=== PATIENT | female | born 1955 | race African-American/Black ===

== ENCOUNTER 2024-10-14 16:07 | Emergency (ER) | payer OTHER ==
[~2024-10-14] VITALS: Ht 162.6 cm; Wt 74.0 kg
--- NOTE | 2024-10-14 16:38 | ED.PDOC ---
Back pain HPI HPI Comments 69y F who presents to the ED for chief complaint of L sided groin pain. - pt states she has been having L sided proximal medial thigh pain radiating to the L medial knee for the past 1 week spontaneously. - pt states she has been having associated numbness and tingling occasionally in the big toe of the left foot. - pt denies any associated fall or injury - pt has associated increased pain with ambulation and relief of pain with rest or sitting down - pt otherwise denies shortness of breath, cough, chest pain, dizziness, nausea, vomiting, fever, or chills. Patient denies back pain. Denies cauda equina like symptoms. Past medical history: HTN, HLD past surgical history: fallopian tube surgery Medications: unknown Allergies: nkda Social history: denies ETOH, denies tobacco use, denies drug use HPI: Poor Historian. REVIEW OF SYSTEMS: CONSTITUTIONAL: Denies acute: fever, diaphoresis, chills, generalized weakness. HEAD: Denies acute: headache, photophobia Eyes: Denies acute: Double vision, vision loss, eye pain, eye discharge. EARS: Denies acute: tinnitus, hearing loss, ear discharge, ear pain, THROAT: Denies acute: sore throat, swelling, difficulty swallowing , pain with swa llowing, change in voice. NECK: Denies acute: neck pain, neck swelling, stiff neck. HEART: Denies acute : chest pain, palpitations, LUNGS: Denies acute: SOB, wheezing, cough, hemoptysis ABDOMEN: Denies acute: abdominal pain, Nausea, Vomiting, diarrhea, melena , hematemesis, hematochezia SKIN: Denies acute: rash, redness, lesions, itchiness. EXTREMITIES: Denies acute: calf pain, numbness, tingling, weakness, Denies acute: Low back pain. Neuro: Denies acute: focal neurological deficit, motor or sensory focal neurological deficit, tremors, seizure like activity, confusion, dizziness, change in mental status, loss of bowel or bladder function, cauda equina like symptoms. : Denies acute: dysuria, hematuria, flank pain, increase in urinary frequency. PSYCH: Denies acute: hallucination, suicidal ideation, homicidal ideation. FEMALE: Denies acute: abnormal vaginal bleeding, foul odor, unusual discharge. PHYSICAL EXAM: General: --no------acute distress, awake and alert. Head: normocephalic, atraumatic. Neck: supple, trachea is midline, no swelling. Throat: Normal phonation. Eyes:, no erythema, no purulent discharge, no proptosis, no icterus. Heart: regular rate, regular rhythm, no significant murmur appreciated. Lungs: no apparent respiratory distress, Able to speak in full sentences. No wheezing, no rhonchi, no crackles. No stridors Clear to auscultation bilaterally. Abdomen: non tender to palpation, non distended, soft, no guarding, no rebound, + bowel sounds. Neuro: Awake, Alert, oriented to name, self, situation, follows commands GCS=15. Speech is normal. Skin: no petechia, no purpura, no cyanosis, non-pale, not jaundice. Lower extremities: --no - Pitting edema no deformity, no focal swelling, no calf TTP. Makes eye contact. moves all four extremities. Evaluation of the left lower extremity: No focal tenderness to palpation, patient is neurovascularly intact in the affected extremity. No deformity or swelling. Pedal pulses palpable. Motor and sensory are present. Face: no apparent facial droop. Ambulating in the ED independently. , Pedal pulses are palpable. ED COURSE: Chief Complaint: Lower Extremity Time Seen by MD: 16:45 Reviewed Notes: Nurses Notes, Allergies Allergies: Coded Allergies: NO KNOWN ALLERGIES (Unverified , 10/14/24) Information Source: Patient Mode of Arrival: Ambulatory Brought in by: self Was a procedure done? Was a procedure done?: No Back Pain Differential Dx Differential Diagnosis: Musculoskeletal Pain, Strain, Other (Radiculopathy, cauda equina, back pain, referred pain, spinal stenosis, muscle strain, DVT, compartment syndrome, cellulitis,) X-Ray, Labs, Meds, VS Vital Signs Date Time Temp Pulse Resp B/P (MAP) Pulse Ox O2 Delivery O2 Flow Rate FiO2 10/14/24 19:47 63 18 98 Room Air 10/14/24 19:47 98.4 63 18 145/83 (103) 98 98.4 10/14/24 16:18 98.8 83 18 128/75 (92) 98 98.8 Lab Test 10/14/24 16:34 10/14/24 16:24 Range/Units White Blood Count 5.2 4.4-10.8 10^3/uL Red Blood Count 4.08 4.0-5.20 10^6/uL Hemoglobin 12.5 12.2-16.2 g/dL Hematocrit 36.3 36.0-46.0 % Mean Corpuscular Volume 88.9 80.0-100.0 fL Mean Corpuscular Hemoglobin 30.7 28.0-32.0 pg Mean Corpuscular Hemoglobin Concent 34.5 32.0-36.0 g/dL Red Cell Distribution Width 14.7 H 11.8-14.3 % Platelet Count 288 140-450 10^3/uL Mean Platelet Volume 7.9 6.9-10.8 fL Neutrophils (%) (Auto) 41.2 37.0-80.0 % Lymphocytes (%) (Auto) 46.6 10.0-50.0 % Monocytes (%) (Auto) 9.5 0.0-12.0 % Eosinophils (%) (Auto) 1.6 0.0-7.0 % Basophils (%) (Auto) 1.1 0.0-2.0 % Neutrophils # (Auto) 2.1 1.6-8.6 10 ^3/uL Lymphocytes # (Auto) 2.4 0.4-5.4 10 ^3/uL Monocytes # (Auto) 0.5 0-1.3 10 ^3/uL Eosinophils # (Auto) 0.1 0-0.8 10 ^3/uL Basophils # (Auto) 0.1 0-0.2 10 ^3/uL Nucleated Red Blood Cells 0.2 % Sodium Level 140 136-145 mmol/L Potassium Level 3.6 3.5-5.1 mmol/L Chloride Level 103 98-107 mmol/L Carbon Dioxide Level 27 20-31 mmol/L Anion Gap 10 5-15 Blood Urea Nitrogen 14 9-23 mg/dL Creatinine 1.11 H 0.550-1.02 mg/dL Glomerular Filtration Rate Calc 54 >90 mL/min BUN/Creatinine Ratio 12.6 10.0-20.0 Serum Glucose 77 74-106 mg/dL Calcium Level 10.4 8.7-10.4 mg/dL Total Bilirubin 0.3 0.2-1.0 mg/dL Aspartate Amino Transferase (AST) 15 13-40 U/L Alanine Aminotransferase (ALT) 18 7-40 U/L Alkaline Phosphatase 51 46-116 U/L C-Reactive Protein High Sensitivity 0.32 <1.0 mg/dL Total Protein 7.7 5.7-8.2 g/dL Albumin 5.0 H 3.2-4.8 g/dL Urine Color Light-yellow Yellow Urine Clarity Clear Clear Urine pH 7.0 5.0-9.0 Urine Specific [place] 1.013 1.001-1.035 Urine Protein Negative Negative Urine Ketones Negative Negative Urine Blood Negative Negative /uL Urine Nitrite Negative Negative Urine Bilirubin Negative Negative Urine Urobilinogen Normal Negative mg/dL Urine Leukocyte Esterase 2+ Negative /uL Urine RBC 2 0 - 4 /hpf Urine Microscopic WBC 4 0-5 /HPF Urine Squamous Epithelial Cells Few <5 /hpf Urine Bacteria Few H None Seen /hpf Urine Hyaline Casts Mod 0 - 2 /lpf Urine Glucose Normal Normal mg/dL Current Medications Medications (Trade) Dose Ordered Sig/Renetta Route Start Time Stop Time Status Last Admin Ceftriaxone Sodium 50 ml @ 100 mls/hr ONCE ONCE IV 10/14/24 19:33 10/14/24 20:02 DC 10/14/24 19:47 Ketorolac Tromethamine (Toradol Injection) 15 mg ONCE ONCE IV 10/14/24 19:33 10/14/24 19:34 DC 10/14/24 19:47 Ondansetron HCl (Zofran) 4 mg ONCE ONCE IV 10/14/24 20:00 10/14/24 20:01 DC 10/14/24 19:57 [place] [address] Ph: [phone] DIAGNOSTIC IMAGING Diagnostic Imaging Report : [id number] Signed PATIENT: YOUNG REESE ACCT: [id number] UNIT: [id number] : 1955 LOC: ER ROOM / BED: / AGE / SEX: 69 / F ADM STATUS: REG ER SERVICE 1622 ORDERING PHYSICIAN: KIMBER ARREOLA DO PROCEDURE(s): LLDVT - LT Lower DVT REASON: medial thigh muscle pain ORDER NUMBER(s): [id number], ACCESSION NUMBER(s): [id number] LEFT lower extremity venous duplex Clinical History: medial thigh muscle pain Comparison: None Technique: Duplex Doppler evaluation of the deep venous systems of LEFT lower extremities from the common femoral veins to the popliteal veins including color Doppler and spectral/pulsed waveform analysis was performed. Findings: LEFT SIDE: The common femoral vein demonstrates appropriate compressibility and waveform variability. There is compressibility/patency of the great saphenous vein at the proximal thigh. The femoral vein demonstrates appropriate compressibility and waveform jacqueline iability. The deep femoral vein demonstrates appropriate compressibility and waveform variability. The popliteal vein demonstrates appropriate compressibility and waveform variability. There is normal compressibility at the tibioperoneal trunk. Impression: 1. No left femoropopliteal venous thrombosis. ATED BY: DANY PERDOMO Jr., DO DICTATED DATE/TIME: 10/14/241700 SIGNED BY: DANY PERDOMO Jr., SIGNED DATE/TIME: 10/14/241700 CC: Time of 1ST Reevaluation: 20:29 Reevaluation 1ST: Resolved Patient Education/Counseling: Diagnosis, Treatment Family Education/Counseling: No Family Present Comments Patient presented with the above HPI.---left medial thigh pain---workup was initiated. patient was found with the above mentioned diagnosis. the following medications were ordered: please refer to order lists of meds and tests obtained by myself Dr. Arreola. Patient ED course and VS have been stabilized. Patient has been reassessed in the ED and remained in a stable condition. Pertinent incidental findings were discussed with the patient and/or family. Patient/family voices understanding and is agreeable with plan. Patient has been observed in the ED adequate length of time to insure improvement/stability. Escalation of care considered: Consideration of escalation to observation or admission Patient denies any dysuria or increased urinary frequency Patient was DISCHARGED home in a stable condition. All the reports of any imaging studies that were ordered by myself were reviewed by myself. Departure 1 Departure Time of Disposition: 20:28 Impression: Primary Impression: Left leg pain Additional Impression: Musculoskeletal pain of left lower extremity Disposition: 01 HOME / SELF CARE / HOMELESS Condition: Stable Additional Instructions: Additional discharge instructions: You MUST follow-up with your primary care/family doctor in 1 to 2 days. If you are unable to see your primary care/family doctor, please return to our emergency room for re-assessment and re-evaluation in 1 to 2 days. Return to the emergency room here in our facility or to the nearest ER [facility] if your symptoms change or worsen. CONSULTATIONS: you MUST Follow-up for consultation as soon as possible with: orthopedic doctor in 1-2 days. Please call for appointment. You MUST call the consultants office yourself to make an appointment. You may need to arrange that through your insurance and/or your primary/family doctor. If you are unable to see the fitness sales consultant in 1 to 2 days, you must return to our emergency room (or any other ER of your choice) for re-assessment and re- evaluation. Adequate fluid hydration. Rest. Use [id number] Tylenol ibuprofen with food as instructed for pain control. Below is a copy of your radiological report for follow up: [place] [address] Ph: [phone] DIAGNOSTIC IMAGING Diagnostic Imaging Report : [id number] Signed PATIENT: YOUNG REESE ACCT: [id number] UNIT: [id number] : 1955 LOC: ER ROOM / BED: / AGE / SEX: 69 / F ADM STATUS: REG ER SERVICE 1622 ORDERING PHYSICIAN: KIMBER ARREOLA DO PROCEDURE(s): LLDVT - LT Lower DVT REASON: medial thigh muscle pain ORDER NUMBER(s): [id number], ACCESSION NUMBER(s): [id number] LEFT lower extremity venous duplex Clinical History: medial thigh muscle pain Comparison: None Technique: Duplex Doppler evaluation of the deep venous systems of LEFT lower extremities from the common femoral veins to the popliteal veins including color Doppler and spectral/pulsed waveform analysis was performed. Findings: LEFT SIDE: The common femoral vein demonstrates appropriate compressibility and waveform variability. There is compressibility/patency of the great saphenous vein at the proximal thigh. The femoral vein demonstrates appropriate compressibility and waveform variability. The deep femoral vein demonstrates appropriate compressibility and waveform variability. The popliteal vein demonstrates appropriate compressibility and waveform variability. There is normal compressibility at the tibioperoneal trunk. Impression: 1. No left femoropopliteal venous thrombosis. ATED BY: DANY PERDOMO Jr., DO DICTATED DATE/TIME: 10/14/241700 SIGNED BY: DANY PERDOMO Jr., DO SIGNED DATE/TIME: 10/14/241700 CC: e-Prescriptions Nitrofurantoin Monohydrate Mac (Macrobid) 100 Mg Cap 100 MG PO BID for 7 Days, #14 CAP Prov: KIMBER ARREOLA DO 10/14/24 Discharged With: Self Critical Care Note Critical Care Time?: No I personally scribed for KIMBER ARREOLA DO ([email or web address]) on 10/14/24 at 16:38. Electronically submitted by Araceli Blackman (CRISTINA). I personally scribed for KIMBER ARREOLA DO ([email or web address]) on 10/14/24 at 16:46. Electronically submitted by Araceli Blackman (CRISTINA). I personally scribed for KIMBER ARREOLA DO ([email or web address]) on 10/14/24 at 17:22. Electronically submitted by Araceli Blackman (CRISTINA). KIMBER ARREOLA DO Oct 14, 2024 16:38
--- NOTE | 2024-10-14 17:03 | DVH ---
LEFT lower extremity venous duplex Clinical History: medial thigh muscle pain Comparison: None Technique: Duplex Doppler evaluation of the deep venous systems of LEFT lower extremities from the common femora l veins to the popliteal veins including color Doppler and spectral/pulsed waveform analysis was perf ormed. Findings: LEFT SIDE: The common femoral vein demonstrates appropriate compressibility and waveform variability. There is compressibility/patency of the great saphenous vein at the proximal thigh. The femoral vein demonstrates appropriate compressibility and waveform variability. The deep femoral vein demonstrates appropriate compressibility and waveform variability. The popliteal vein demonstrates appropriate compressibility and waveform variability. There is normal compressibility at the tibioperoneal trunk. Impression: 1. No left femoropopliteal venous thrombosis.
[2024-10-14 17:09] LABS: Basophils # (auto) 0.1 10 ^3/uL (0-0.2); Basophils % (auto) 1.1 % (0.0-2.0); Eosinophils # (auto) 0.1 10 ^3/uL (0-0.8); Eosinophils % (auto) 1.6 % (0.0-7.0); Hematocrit 36.3 % (36.0-46.0); Hemoglobin 12.5 g/dL (12.2-16.2); Lymphocytes # (auto) 2.4 10 ^3/uL (0.4-5.4); Lymphocytes % (auto) 46.6 % (10.0-50.0); Mean Corpuscular Hemoglobin 30.7 pg (28.0-32.0); Mean Corpuscular Hgb Conc. 34.5 g/dL (32.0-36.0); Mean Corpuscular Volume 88.9 fL (80.0-100.0); Monocytes # (auto) 0.5 10 ^3/uL (0-1.3); Monocytes % (auto) 9.5 % (0.0-12.0); Neutrophils # (auto) 2.1 10 ^3/uL (1.6-8.6); Neutrophils % (auto) 41.2 % (37.0-80.0); Nucleated Red Blood Cells % 0.2 %; Platelet Count (auto) 288 10^3/uL (140-450); Red Blood Cells 4.08 10^6/uL (4.0-5.20); Red Cell Distribution Width 14.7 % (11.8-14.3); White Blood Cell 5.2 10^3/uL (4.4-10.8)
[2024-10-14 17:09] LABS: Urine Bacteria FEW /hpf (None Seen); Urine Blood Negative /uL (Negative); Urine Clarity Clear (Clear); Urine Color Light-Yellow (Yellow); Urine Hyaline Cast MOD /lpf (0 - 2); Urine Protein, UAD Negative (Negative); Urine Specific Gravity 1.013 (1.001-1.035); Urine Squamous Epithelial Cell FEW /hpf (<5); Urine Urobilinogen Normal (Negative); Urine WBC 4 /HPF (0-5)
[2024-10-14 17:21] LABS: Alanine Aminotransferase 18 U/L (7-40); Alkaline Phosphatase 51 U/L (46-116); Anion Gap 10 (5-15); Aspartate Aminotransferase 15 U/L (13-40); BUN/Creatinine Ratio 12.6 (10.0-20.0); Bilirubin, Total 0.3 mg/dL (0.2-1.0); Blood Urea Nitrogen 14 mg/dL (9-23); CRP High Sensitivity 0.32 mg/dL (<1.0); Carbon Dioxide 27 mmol/L (20-31); Chloride 103 mmol/L (98-107); Glucose 77 mg/dL (74-106); Potassium 3.6 mmol/L (3.5-5.1); Sodium 140 mmol/L (136-145); Total Protein 7.7 g/dL (5.7-8.2)
[2024-10-14 17:24] LABS: Calcium 10.4 mg/dL (8.7-10.4)
[2024-10-14 19:47] VITALS: BP 145/83; PULSE 63; RESP 18; TEMP 98.4; O2SAT 98
[2024-10-14] MEDS: KETOROLAC TROMETH 60MG/2ML VIAL IV ONE (19:47)
[2024-10-14] MEDS: cefTRIAXone 1GM/50ML D5W 50 ML IV ONE (19:47)
[2024-10-14] MEDS: ONDANSETRON HCL 4 MG/2 ML VIAL IV ONE (19:57)
[2024-10-14] MEDS: ONDANSETRON HCL 4 MG/2 ML VIAL ONE (20:10)
[2024-10-14] MEDS ORDERED: NITR-87 PO (22:44)
== END 2024-10-14 21:15 | disposition home or self-care (01) ==
LOC: ER 16:14
DX: M79.605 Pain in left leg (principal); I10 Essential (primary) hypertension; E78.5 Hyperlipidemia, unspecified; Z79.899 Other long term (current) drug therapy
CPT/HCPCS: 36415; 80053; 81001; 85025; 86141; 93971; 96365; 96375; 99285; J0696; J1885; J2405